=== PATIENT | female | born 1975 | race Caucasian/White ===

== ENCOUNTER 2016-06-27 17:02 | Emergency (ER) | payer MEDICAID ==
[~2016-06-27] VITALS: Ht 162.6 cm; Wt 74.6 kg
[~2016-06-27 17:02] MED LIST: ATEN-102 PO; MACR100C PO
[2016-06-27 17:23] VITALS: BP 145/98; PULSE 82; RESP 16; TEMP 98.7; O2SAT 100
[2016-06-27] MEDS ORDERED: CLIN1CAP5 PO (18:04)
[2016-06-27] MEDS ORDERED: TRAM50TA PO ×2 (18:04→18:15)
--- NOTE | 2016-06-27 18:06 | PD ---
HPI Chief Complaint: Oral / Dental Pain or Problem Time Seen by Provider: 18:05 Travel History International Travel<30 days: No Contact w/Intl Traveler<30days: No Traveled to known affect area: No History of Present Illness HPI 41-year-old female presents to the emergency room for evaluation of left lower dental pain for the past 3 days. Patient states has been getting progressively worse every day. Pain is mostly localized to the left frontal region but radiates to the back jaw. She developed swelling today. She has been taking Tylenol without any relief in symptoms. Patient states she cannot take NSAIDs because she has chronic kidney disease due to preeclampsia. Denies fever, chills, nausea, and vomiting. [place] is [place] from [place] and is requesting a prescription until she can see her dentist in [place]. PFSH Past Medical History Anemia: Yes Anxiety: Yes Heart Rhythm Problems: Yes (hx SVT) Hypertension: Yes Renal Failure: No (decreased renal function ) Tetanus Vaccination: < 5 Years Influenza Vaccination: No ?: Not LMP: 06/19/16 Tubal Ligation: Yes Past Surgical History Section: Yes (x1) Cholecystectomy: Yes Tonsillectomy: Yes Social History Alcohol Use: No Tobacco Use: Yes (1/ PPD - 1 PPD) Substance Use: No Allergies-Medications (Allergen,Severity, Reaction): Coded Allergies: Clindamycin (Verified Allergy, Severe, Anaphylaxis, 06/27/16) Magnesium Sulfate (Verified Allergy, Severe, HYPOTENSION, 06/27/16) Shellfish (Verified Allergy, Severe, SWELLING, 06/27/16) Latex (Verified Allergy, Mild, 06/27/16) Penicillin (Verified Allergy, Mild, 06/27/16) Zithromax (Verified Allergy, Mild, 06/27/16) Nonsteroidal Anti-Inflammatory Agts (Verified Adverse Reaction, Unknown, kidney issues, 06/27/16) Reported Meds & Prescriptions Reported Meds & Active Scripts Active Keflex (Cephalexin) 500 Mg Cap 500 Mg PO Q6H 7 Days Tramadol (Tramadol HCl) 50 Mg Tab 50 Mg PO Q6H PRN Macrobid (Nitrofurantoin Macrocrystals) 100 Mg Cap 100 Mg PO BID Atenolol 50 Mg Tab 50 Mg PO BID Review of Systems Except as stated in HPI: all other systems reviewed are Neg Physical Exam Narrative GENERAL: Well-nourished, well-developed female in no acute distress. Afebrile. Ambulatory. SKIN: Focused skin assessment warm/dry. DENTAL: Severe decay throughout. Several teeth missing. No malocclusion. Tenderness to palpation of tooth #21. No surrounding erythema or gingival edema. No submental, submandibular, or buccal induration. Mild left-sided facial swelling. HEAD: Normocephalic. EYES: No scleral icterus. No injection or drainage. NECK: Supple, trachea midline. No JVD or lymphadenopathy. CARDIOVASCULAR: Regular rate and rhythm without murmurs, gallops, or rubs. RESPIRATORY: Breath sounds equal bilaterally. No accessory muscle use. Data Data Last Documented VS Vital Signs Date Time Temp Pulse Resp B/P Pulse Ox O2 Delivery O2 Flow Rate FiO2 06/27/16 17:37 16 06/27/16 17:23 98.7 82 145/98 100 MDM Medical Decision Making Medical Screen Exam Complete: Yes Emergency Medical Condition: Yes Medical Record Reviewed: Yes Differential Diagnosis Dental abscess versus gingivitis versus toothache Narrative Course 41-year-old female presents to the emergency room for evaluation of dental abscess that is ongoing for 3 days. She is afebrile well-appearing in the emergency room. Vital signs stable. Resting comfortably in bed. Physical exam reveals mild left-sided facial edema and tenderness to palpation at tooth # 21 No surrounding erythema, drainage, or gingival edema. This is dental abscess. Patient will be discharged with prescription for Keflex as she is allergic to penicillin and clindamycin. Given terminal for pain since she cannot take NSAIDs. Told to follow up with her dentist and return for worsening symptoms. She understands and agrees to plan. Diagnosis Primary Impression: Dental abscess Referrals: Dentist Primary Care Physician Patient Instructions: Dental Abscess (ED), General Instructions Additional Instructions: Rest and drink plenty of fluids. Clindamycin as directed, until gone. Tramadol as directed, as needed for pain. Follow-up with a dentist. Return to the emergency room for worsening symptoms. Med/Other Pt SpecificInfo: Prescription(s) given Scripts Cephalexin (Keflex)500 Mg [id number] Mg PO Q6H 7 Days Ref 0 Prov:Elpidio Dorantes MD 06/27/16 Tramadol 50 Mg Tab50 Mg PO Q6H PRN (PAIN) #7 TAB Ref 0 Prov:MacMahon,Amilcar MD 06/27/16 Disposition: 01 DISCHARGE HOME Condition: Stable Betty Arellano June 27, 2016 18:06
[2016-06-27] MEDS ORDERED: CEPH-460 PO (18:17)
== END 2016-06-27 18:49 | disposition home or self-care (01) ==
LOC: PHEFT 17:02
DX: K04.7 Periapical abscess without sinus (principal); I10 Essential (primary) hypertension; F17.210 Nicotine dependence, cigarettes, uncomplicated
CPT/HCPCS: 99282

== ENCOUNTER 2016-10-23 19:12 | Emergency (ER) | payer MEDICAID ==
[~2016-10-23] VITALS: Ht 162.6 cm; Wt 72.5 kg
[~2016-10-23 19:12] MED LIST changes: -ATEN-102 PO; +ATEN50TA PO; +CEPH-460 PO; +LORA-474 PO; -MACR100C PO
[2016-10-23 19:15] VITALS: BP 140/87; PULSE 85; RESP 16; TEMP 98.6; O2SAT 100
[2016-10-23] MEDS ORDERED: ATEN100T PO (19:51)
--- NOTE | 2016-10-23 20:02 | PD ---
HPI Chief Complaint: Medication Refill Request Time Seen by Provider: 19:52 Travel History International Travel<30 days: No Contact w/Intl Traveler<30days: No Traveled to known affect area: No History of Present Illness HPI 41-year-old white female with a history of hypertension and SVT presents emergency department for evaluation of medication refill. She states that she is out of her medication. She had an appointment today with her doctor but unfortunately they no longer take her insurance. She states that she needs a refill until she can get into a new provider. She has no medical complaint. PFSH Past Medical History Narrative Medical Anxiety, SVT, hypertension Anemia: Yes Anxiety: Yes Heart Rhythm Problems: Yes (hx SVT) Cardiovascular Problems: Yes (HTN, SVT) Hypertension: Yes Renal Failure: No (decreased renal function ) Tetanus Vaccination: < 5 Years ?: Not LMP: 10/23/16 Tubal Ligation: Yes Past Surgical History Narrative Surgical Tonsillectomy, , cholecystectomy Section: Yes (x1) Cholecystectomy: Yes Tonsillectomy: Yes Social History Alcohol Use: No Tobacco Use: Yes (1/2 PPD - 1 PPD) Substance Use: No Allergies-Medications (Allergen,Severity, Reaction): Coded Allergies: clindamycin (Unverified Allergy, Severe, Anaphylaxis, 09/24/16) doxycycline (Unverified Allergy, Severe, Swelling, 09/24/16) magnesium (Unverified Allergy, Severe, HYPOTENSION, 09/24/16) magnesium sulfate (Unverified Allergy, Severe, HYPOTENSION, 09/24/16) shellfish derived (Unverified Allergy, Severe, SWELLING, 09/24/16) acetaminophen (Unverified Allergy, Mild, Severe Vomitting, 09/24/16) azithromycin (Unverified Allergy, Mild, 09/24/16) latex (Unverified Allergy, Mild, 09/24/16) oxycodone (Unverified Allergy, Mild, Severe Vomitting, 09/24/16) penicillin G (Unverified Allergy, Mild, 09/24/16) propoxyphene (Unverified Allergy, Mild, Severe Vomitting, 09/24/16) diclofenac (Unverified Adverse Reaction, Unknown, kidney issues, 09/24/16) etodolac (Unverified Adverse Reaction, Unknown, kidney issues, 09/24/16) flurbiprofen (Unverified Adverse Reaction, Unknown, kidney issues, 09/24/16 ) ibuprofen (Unverified Adverse Reaction, Unknown, kidney issues, 09/24/16) indomethacin (Unverified Adverse Reaction, Unknown, kidney issues, 09/24/16 ) ketoprofen (Unverified Adverse Reaction, Unknown, kidney issues, 09/24/16) ketorolac (Unverified Adverse Reaction, Unknown, kidney issues, 09/24/16) naproxen (Unverified Adverse Reaction, Unknown, kidney issues, 09/24/16) oxaprozin (Unverified Adverse Reaction, Unknown, kidney issues, 09/24/16) Uncoded Allergies: VAGNAL LUBE (Allergy, Severe, swelling, 09/12/16) Reported Meds & Prescriptions Reported Meds & Active Scripts Active Atenolol 100 Mg Tab 100 Mg PO BID Atenolol 50 Mg Tab 100 Mg PO BID Keflex (Cephalexin) 500 Mg Cap 500 Mg PO Q6H Reported Ativan (Lorazepam) 1 Mg Tab 1 Mg PO DAILY PRN Review of Systems Except as stated in HPI: all other systems reviewed are Neg Physical Exam Narrative GENERAL: This is a well-nourished, well-developed patient, in no apparent distress. SKIN: No rashes, ecchymoses or lesions. Warm and dry. HEAD: Atraumatic. Normocephalic. EYES: PERRL, EOMI, no discharge or injection. No scleral icterus. EARS: Clear NOSE: Nasal turbinates appear normal. THROAT: Mucosa pink and moist. Airway patent. NECK: Trachea midline. supple, moves head freely. LUNGS: Clear to auscultation. CV: Regular in rhythm. ABDOMEN: Soft nontender. EXT: No clubbing cyanosis or edema. Data Data Last Documented VS Vital Signs Date Time Temp Pulse Resp B/P (MAP) Pulse Ox O2 Delivery O2 Flow Rate FiO2 10/23/16 19:15 98.6 85 16 140/87 (104) 100 Room Air MDM Medical Decision Making Medical Screen Exam Complete: Yes Emergency Medical Condition: Yes Medical Record Reviewed: Yes Differential Diagnosis Hypertension, SVT, med refill Narrative Course This is medication refill Diagnosis Primary Impression: Encounter for medication refill Additional Impression: History of PSVT (paroxysmal supraventricular tachycardia) Patient Instructions: General Instructions Additional Instructions: Rest. Increase fluids Medications as directed. Follow-up with the [facility] in one week. Med/Other Pt SpecificInfo: Prescription(s) given Scripts Atenolol (Atenolol) 100 Mg Tab 100 MG PO BID for Blood Pressure Management, #60 TAB 0 Refills Prov: Mirian Sullivan DO 10/23/16 Disposition: 01 DISCHARGE HOME Condition: Stable Jd Melvin Oct 23, 2016 20:02
== END 2016-10-23 20:17 | disposition home or self-care (01) ==
LOC: NETRI 19:12 → EDTENT 20:17
DX: I47.1 Supraventricular tachycardia (principal); Z76.0 Encounter for issue of repeat prescription
CPT/HCPCS: 99281